=== PATIENT | female | born 1980 | race Hispanic/Latino ===

== ENCOUNTER 2024-07-09 07:19 | Day surgery (SDC) | payer BC ==
[2024-07-05 09:07] VITALS: BP 124/70; PULSE 73; RESP 13; TEMP 97.9
[2024-07-05 09:07] LABS: BASOPHILS # (AUTO) 0.04 K/uL (0.00-0.20); BASOPHILS % (AUTO) 0.5 % (0.0-5.0); EOSINOPHILS # (AUTO) 0.03 K/uL (0.00-0.70); EOSINOPHILS % (AUTO) 0.3 % (0.0-8.0); HEMATOCRIT 38.6 % (36-48); IMMATURE GRANULOCYTE ABSOLUTE 0.04 K/uL (0-1); LYMPHOCYTES % (AUTO) 22.6 % (21.0-51.0); MEAN CORPUSCULAR HEMOGLOBIN 26.9 pg (27.0-33.0); MEAN CORPUSCULAR HGB CONC 31.6 g/dL (32.0-36.0); MEAN CORPUSCULAR VOLUME 85.2 fL (79-99); MONOCYTES # (AUTO) 0.6 K/uL (0.1-1.0); MONOCYTES % (AUTO) 6.7 % (3.0-13.0); NEUTROPHILS % (AUTO) 69.4 % (40.0-77.0); PLATELET COUNT (AUTO) 335 K/uL (130-400); RED BLOOD CELL COUNT(AUTO) 4.53 MIL/uL (4.00-5.50); RED CELL DISTRIBUTION WIDTH 13.7 % (11.0-15.5); WHITE BLOOD COUNT (AUTO) 8.6 K/uL (4.8-10.8)
[2024-07-05 09:25] LABS: CREATININE 0.7 mg/dL (0.5-1.0); POTASSIUM 3.9 mmol/L (3.5-5.1)
[~2024-07-09] VITALS: Ht 149.9 cm; Wt 80.2 kg
[2024-07-09] VITALS (14 sets, daily range): BP systolic 108–130; BP diastolic 60–71; PULSE 73–92; RESP 16–20; TEMP 97.2–97.9
[2024-07-09] MEDS: ceFAZolin SODIUM 2 GM VIAL ONE (07:40)
[2024-07-09] MEDS ORDERED: proPOFol 10 MG/ML 20ML VIAL IV ONE (09:44)
[2024-07-09] MEDS ORDERED: ondanSETRON 4MG INJ ONE ×2 (09:44→09:58)
[2024-07-09] MEDS ORDERED: MIDAZOLAM HCL 1 MG/ML 2ML VIAL ONE (09:45)
[2024-07-09] MEDS ORDERED: rocuRONium bROMide 10MG/1ML 5ML VL ONE (09:45)
[2024-07-09] MEDS ORDERED: FENTanyl CITRate PF 50 MCG/1 ML 2ML VIAL ONE (09:45)
[2024-07-09] MEDS ORDERED: acetaMINOPHEN 100 ML ONE (09:51)
[2024-07-09] MEDS ORDERED: dexaMETHasone SOD PHOSPHATE 10MG/ML 1ML VIAL ONE (09:58)
[2024-07-09] MEDS: LACTATED RINGERS 1000ML 1,000 ML IV ONE (10:14)
[2024-07-09] MEDS: BUPIvacaine/PF 0.25% 30ML VIAL IJ ONE (11:13)
--- NOTE | 2024-07-09 11:13 | OP ---
Operative Note: DATE OF PROCEDURE: 07/09/24 SURGEON: ROSELINE BLAKELY MD ASSEMBLER FOR PULLER OVER MACHINE: [] ANESTHESIA: [] General ANESTHESIOLOGIST/VASCULAR ULTRASOUND TECHNOLOGIST: [] PREOPERATIVE DIAGNOSIS: [] POSTOPERATIVE DIAGNOSIS: [] Cholecystitis SYNOPSIS: [] PROCEDURE: [] Laparoscopic cholecystectomy ESTIMATED BLOOD LOSS: [] None INDICATIONS: [] DESCRIPTION OF PROCEDURE: []With the patient prepped in the usual fashion a supraumbilical incision was additionally directed to meet with placement of the trocar and abdomen insufflated. Three 5 mm trochars were placed in the right upper quadrant under direct vision. The gallbladder was exposed adhesions were taken down and I dissected triangle of [place]ot. The cystic duct was clearly identified was triple clipped and divided and the cystic artery was double clipped and divided. I took the gallbladder from the liver using cautery dis section and after removed from the liver bed I placed an in a bag. I cauterized the liver bed and I placed 40 cc of Marcaine 0.25% in the side of the abdomen as an abdominal tap block under direct vision. And after adequate hemostasis and irrigation I removed all the trochars under direct vision and the gallbladder was removed from the supraumbilical incision. After removing the gallbladder I placed interrupted [id number] Vicryl's and the fascia. All incisions were closed with 4-0 Monocryl and Steri-Strips. Patient was stable at the end of the procedure ROSELINE BLAKELY MD Jul 09, 2024 11:13
[2024-07-09] MEDS: MEPERIDINE-PF 25 MG/ML SYG ONE (11:35)
[2024-07-09] MEDS: ondanSETRON 4MG INJ ONE (11:42)
--- NOTE | 2024-07-09 12:32 | NUR ---
Patient aox4. Denies c/o pain or discomfort. Surgical Laparoscopic sites clean, dry and intact. Voiced understanding to surgical site precautions and follow up expectations. Ambulated to bathroom with standby walker assist. Voided large amount of clear urine. PIV discontinued with catheter tip intact. Full and complete Discharge instructions given to Patient and . All questions answered. W/C to POV with to Home. Call your doctor if: Severe pain not easily relieved. Fever greater than 101 F. Difficulty breathing. Excessive dizziness. Rash breaks out. Excessive nausea or vomiting. Any other medical problems of your concern. Foul-smelling or unusual drainage to incision/dressing. Excessive bleeding to incision/dressing. Numbness/tingling to affected extremity. Unable to pass urine for more than 6 to 8 hours after discharge. Redness/swelling to the incision site. Report any new severe issues to Physician immediately
== END 2024-07-09 12:35 | disposition home or self-care (01) ==
LOC: DAH 07:19
PROVIDERS: ATTEND Surgery
DX: K80.10 Calculus of gallbladder with chronic cholecystitis without obstruction (principal); Z98.51 Tubal ligation status; Z98.891 History of uterine scar from previous surgery; Z82.49 Family history of ischemic heart disease and other diseases of the circulatory system; Z83.3 Family history of diabetes mellitus
CPT/HCPCS: 80048; 84703; 85025; 36415; 47562; 81025; 88304; A6260; A4663; J7030; J7120; J3010; J1100; J0665; J3490; J2250; J2704; J2405 ×3; J2175; J0690; C1769 ×3; A4649; A4930; A4215; A4213; A4222; A4221; A4216; A4223 ×2; A4600